=== PATIENT | male | born 1975 | race Caucasian/White ===

== ENCOUNTER 2017-02-19 10:16 | Emergency (ER) | payer OTHER ==
[2017-02-19 10:23] VITALS: RESP 18
[2017-02-19] MEDS ORDERED: KETOROLAC 60 MG/2 ML VIAL IM STA (11:10)
[2017-02-19] MEDS ORDERED: ORPHENADRINE 30 MG/ML 2 ML VIAL IM STA (11:10)
--- NOTE | 2017-02-19 11:13 | ED ---
General Adult HPI - General Chief complaint: Back Pain/Injury Stated complaint: back pian Time Seen by Provider: 02/19/17 10:51 Source: patient, RN notes reviewed Mode of arrival: ambulatory Limitations: no limitations - History of Present Illness Initial comments: 41-year-old male presents to the emergency Department chief complaint of left- sided low back pain. Patient states he is working bend over quite a bit on Sunday. Patient states he went to stand up and he had this pain in his left side of his back. Patient states that it hurts to walk and stand it hurts to move over the last few days however he noticed that he still had some swelling over the left side of the back so they thought that he should be seen. He denies any loss of bowel or bladder function or any saddle anesthesia. Patient states that there is no other injury there is no fall. There is no trauma to the back. Patient states he has had back pain on and off before that this just seemed progressed and stay longer than normal. Patient denies any recent fever, chills, shortness of breath, chest pain, abdominal pain, nausea vomiting, numbness or tingling, dysuria or hematuria, constipation or diarrhea, headaches or visual changes, or any other current symptoms. - Related Data Home Medications Medication Instructions Recorded Confirmed Aspirin 325 - 650 mg PO QID PRN 06/04/16 06/04/16 Ibuprofen [Motrin] 400 mg PO Q6H PRN 06/04/16 06/04/16 Previous Rx's Medication Instructions Recorded Ibuprofen [Motrin] 600 mg PO Q6HR PRN #20 tab 02/19/17 Orphenadrine [Norflex] 100 mg PO Q12H #10 tablet.er 02/19/17 Allergies Allergy/AdvReac Type Severity Reaction Status Date / Time No Known Allergies Allergy Verified 02/19/17 10:23 Review of Systems ROS Statement: Those systems with pertinent positive or pertinent negative responses have been documented in the HPI. ROS Other: All systems not noted in ROS Statement are negative. Past Medical History Additional Past Medical History / Comment(s): strep A fascitis History of Any Multi-Drug Resistant Organisms: None Reported Additional Past Surgical History / Comment(s): left arm Past Psychological History: No Psychological Hx Reported Smoking Status: Current every day smoker Past Alcohol Use History: None Reported Past Drug Use History: None Reported General Exam Limitations: no limitations General appearance: alert, in no apparent distress Head exam: Present: atraumatic, normocephalic, normal inspection ENT exam: Present: normal exam, mucous membranes moist Neck exam: Present: normal inspection. Absent: tenderness, meningismus, lymphadenopathy Respiratory exam: Present: normal lung sounds bilaterally. Absent: respiratory distress, wheezes, rales, rhonchi, stridor Cardiovascular Exam: Present: regular rate, normal rhythm, normal heart sounds. Absent: systolic murmur, diastolic murmur, rubs, gallop, clicks Back exam: Present: normal inspection, full ROM, tenderness (Left paraspinal region), muscle spasm (Left paraspinal). Absent: vertebral tenderness, rash noted Neurological exam: Present: alert, oriented X3 Psychiatric exam: Present: normal affect, normal mood Skin exam: Present: warm, dry, intact, normal color. Absent: rash Course Vital Signs 02/19/17 10:17 Temperature 97.5 F L Pulse Rate 100 Respiratory 18 Rate Blood Pressure 154/103 O2 Sat by Pulse 96 Oximetry Medical Decision Making - Medical Decision Making 40-year-old male presents with what appears to be lumbar strain. We'll start patient on anti-inflammatory muscle axes to home. We discussed care we discussed follow-up discussed return parameters all patient's questions. He stated he understood and is in agreement with this plan. All questions have been answered. He will be discharged home. Disposition Clinical Impression: Lumbar strain Disposition: HOME SELF-CARE Condition: Stable Instructions: Lower Back Exercises (ED), Low Back Strain (ED) Additional Instructions: Please use medication as discussed. Please follow up with family doctor if symptoms have not improved over the next two days. Please return to the emergency room if your symptoms increase or worsen or for any other concerns. Prescriptions: Ibuprofen [Motrin] 600 mg PO Q6HR PRN #20 tab PRN Reason: Pain Orphenadrine [Norflex] 100 mg PO Q12H #10 tablet.er Referrals: Donnie Lucas MD [REFERRING] - 1-2 days Time of Disposition: 11:13
[2017-02-19 12:21] VITALS: BP 127/90; PULSE 78; TEMP 98.2
== END 2017-02-19 12:18 | disposition home or self-care (01) ==
LOC: EC 10:16
DX: S39.012A Strain of muscle, fascia and tendon of lower back, initial encounter (principal); F17.200 Nicotine dependence, unspecified, uncomplicated; X50.0XXA Overexertion from strenuous movement or load, initial encounter
CPT/HCPCS: 99283; 96372 ×2; J2360; J1885

== ENCOUNTER 2017-08-29 08:48 | Emergency (ER) | payer OTHER ==
[2017-08-29] MEDS ORDERED: SODIUM CHLORIDE 0.9% 500 ML IV STA (09:30)
[2017-08-29] MEDS ORDERED: KETOROLAC 30 MG/ML 1 ML VIAL IVP STA (09:31)
--- NOTE | 2017-08-29 09:34 | ED ---
Chest Pain HPI - General Chief Complaint: Chest Pain Stated Complaint: LEFT SIDE CHEST PAIN, NECK PAIN Time Seen by Provider: 08/29/17 09:10 Source: patient, RN notes reviewed, old records reviewed Mode of arrival: ambulatory Limitations: no limitations - History of Present Illness Initial Comments: This patient is a 41-year-old male chief complaint of one week of left-sided chest pain. He reports that approximately one week ago he started have some dyspepsia and discomfort with swallowing. He reports that shortly resolved related the symptoms just gas. The day afterwards he fell off of a porch and initially did not acute had any injury. The following day he started have some left-sided muscular chest pain. Patient states that he is now have a cold and has been lightheaded dizzy and was told to come here to rule out any other concerning symptoms. Patient reports that the pain is worse with taking a deep breath and palpation over the left rib area. He is a heavy smoker. Denies any history of hypertension blood hyperlipidemia, diabetes. He does have family history of heart disease. - Related Data Home Medications Medication Instructions Recorded Confirmed Ibuprofen [Motrin] 1,000 mg PO BID PRN 06/04/16 08/29/17 Aspirin 325 mg PO BID PRN 08/29/17 08/29/17 Dm/PE/Acetaminophen/Doxylamine 2 cap PO Q4H PRN 08/29/17 08/29/17 [[facility] Plus Day-Night Cp] Previous Rx's Medication Instructions Recorded Acetaminophen-Codeine 300-30mg 1 tab PO Q6H PRN #15 tablet 08/29/17 [Tylenol #3] Naproxen 500 mg PO BID #20 tablet 08/29/17 Allergies Allergy/AdvReac Type Severity Reaction Status Date / Time No Known Allergies Allergy Verified 08/29/17 09:24 Review of Systems ROS Statement: Those systems with pertinent positive or pertinent negative responses have been documented in the HPI. ROS Other: All systems not noted in ROS Statement are negative. EKG Findings - EKG Comments: EKG Findings:: EKG performed at 935 shows normal sinus rhythm, ventricular 78 bpm. Verbal 186 no seconds. QRS duration 88 ms. QT QTC EC 74/426 no seconds. No evidence of ST elevation or T-wave inversion. No speech or ventricular arrhythmias. Past Medical History Additional Past Medical History / Comment(s): strep A fascitis History of Any Multi-Drug Resistant Organisms: None Reported Additional Past Surgical History / Comment(s): left arm Past Psychological History: No Psychological Hx Reported Smoking Status: Current every day smoker Past Alcohol Use History: Occasional Past Drug Use History: None Reported General Exam - General Exam Comments Initial Comments: Patient is 41-year-old male. No distress. Limitations: no limitations General appearance: alert, in no apparent distress Head exam: Present: atraumatic, normocephalic, normal inspection Eye exam: Present: normal appearance, PERRL, EOMI. Absent: scleral icterus, conjunctival injection, periorbital swelling ENT exam: Present: normal exam, mucous membranes moist Neck exam: Present: normal inspection Respiratory exam: Present: normal lung sounds bilaterally, chest wall tenderness , other (Left-sided chest wall tenderness.). Absent: respiratory distress, rales, rhonchi, stridor Cardiovascular Exam: Present: regular rate, normal rhythm, normal heart sounds. Absent: systolic murmur, diastolic murmur, rubs, gallop, clicks GI/Abdominal exam: Present: soft, normal bowel sounds. Absent: distended, tenderness, guarding, rebound, rigid Extremities exam: Present: normal inspection, full ROM, normal capillary refill. Absent: tenderness, pedal edema, joint swelling, calf tenderness Back exam: Present: normal inspection Neurological exam: Present: alert, oriented X3, CN II-XII intact Psychiatric exam: Present: normal affect, normal mood Skin exam: Present: warm, dry, intact, normal color. Absent: rash Course Vital Signs 08/29/17 08/29/17 09:00 09:55 Temperature 98.2 F Pulse Rate 98 86 Respiratory 18 16 Rate Blood Pressure 155/88 141/88 O2 Sat by Pulse 97 97 Oximetry Chest Pain [facility] Patient is a 41-year-old male chief complaint of a few days of left-sided chest wall pain and tenderness. Patient is tender to palpation over the anterior chest wall. At this time patient's EKG was reviewed and normal. Chest x-ray shows no fractures or any other abnormalities. He did have a fall approximately week ago off a porch. 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 Patient's cardiac enzymes are all normal been no acute changes. The cirrhosis patient likely has musculoskeletal strain , cross so enteritis as well. We'll start the patient on anti-inflammatory medicine and pain medicine. Discussed falling up with primary care provider is important with his history of smoking and family history of heart disease. I discussed that he has any worsening pain or if there is a different change in the pain he should return for further evaluation. All questions were answered and return parameters were discussed. A chest x-ray was reviewed and negative for any acute process. Disposition Clinical Impression: Chest wall pain Disposition: HOME SELF-CARE Condition: Good Instructions: Costochondritis (ED) Additional Instructions: Patient advised to apply heat and ice over the chest wall. Take the medications as prescribed. Follow-up with primary care provider's. Return to emergency department if any alarming signs or symptoms occur. Prescriptions: Acetaminophen-Codeine 300-30mg [Tylenol #3] 1 tab PO Q6H PRN #15 tablet PRN Reason: Pain Naproxen 500 mg PO BID #20 tablet Referrals: None,Stated [Primary Care Provider] - 1-2 days Donnie Lucas MD [REFERRING] - 1-2 days Time of Disposition: 11:22
[2017-08-29 09:56] VITALS: RESP 16
[2017-08-29 10:19] LABS: Basophils % (A) 0 %; Eosinophils # (A) 0.2 k/uL (0-0.7); Eosinophils % (A) 5 %; HCT 51.3 % (39.0-53.0); HGB 16.7 gm/dL (13.0-17.5); Lymphocytes # (A) 1.1 k/uL (1.0-4.8); Lymphocytes % (A) 23 %; MCHC 32.6 g/dL (31.0-37.0); MCV 91.9 fL (80.0-100.0); Mean Platelet Volume 7.3; Monocytes # (A) 0.4 k/uL (0-1.0); Monocytes % (A) 9 %; Neutrophils # (A) 2.8 k/uL (1.3-7.7); Neutrophils % (A) 60 %; Platelet Count 178 k/uL (150-450); RBC 5.58 m/uL (4.30-5.90); RDW 12.9 % (11.5-15.5); WBC 4.7 k/uL (3.8-10.6)
[2017-08-29 10:27] LABS: Partial Thromboplastin Time 23.3 sec (22.0-30.0); Prothrombin Time 9.6 sec (9.0-12.0)
--- NOTE | 2017-08-29 10:28 | XR ---
EXAMINATION TYPE: XR chest 2V DATE OF EXAM: 08/29/2017 COMPARISON: Prior chest x-ray June 04, 2016 HISTORY: Left-sided chest pain. TECHNIQUE: Frontal and lateral views of the chest are obtained. FINDINGS: There is no focal air space opacity, pleural effusion, or pneumothorax seen. The cardiac silhouette size is within normal limits. The osseous structures are intact. IMPRESSION: No acute cardiopulmonary process. No significant change from prior.
[2017-08-29 10:33] LABS: ALT 70 U/L (21-72); AST 38 U/L (17-59); Alkaline Phosphatase 67 U/L (38-126); Anion Gap 10 mmol/L; Blood Urea Nitrogen 10 mg/dL (9-20); Calcium 9.4 mg/dL (8.4-10.2); Carbon Dioxide 27 mmol/L (22-30); Chloride 103 mmol/L (98-107); Glucose 101 mg/dL (74-99); Magnesium 2.1 mg/dL (1.6-2.3); Potassium 4.5 mmol/L (3.5-5.1); Sodium 140 mmol/L (137-145); Total Bilirubin 0.4 mg/dL (0.2-1.3); Total Protein 6.4 g/dL (6.3-8.2)
[2017-08-29 10:46] LABS: Creatine Kinase 118 U/L (55-170)
[2017-08-29 10:58] LABS: Creatine Kinase MB 0.5 ng/mL (0.0-2.4); Troponin I <0.012 ng/mL (0.000-0.034)
[2017-08-29 11:48] VITALS: BP 142/82; PULSE 106; TEMP 96.7
== END 2017-08-29 11:47 | disposition home or self-care (01) ==
LOC: EC 08:48
DX: R07.89 Other chest pain (principal); R42 Dizziness and giddiness; M54.2 Cervicalgia; F17.200 Nicotine dependence, unspecified, uncomplicated; Z82.49 Family history of ischemic heart disease and other diseases of the circulatory system
CPT/HCPCS: 36415; 93005; 80053; 82550; 82553; 83735; 84484; 85025; 85610; 85730; 71046; 99285; 96374; 96361; J1885